=== PATIENT | female | born 1995 | race Caucasian/White ===

== ENCOUNTER 2018-01-11 15:57 | Day surgery (SDC) | payer BC, OTHER ==
[2018-01-11 16:48] VITALS: BMI 22.3
[2018-01-11] MEDS ORDERED: Ondansetron ODT 4 MG TAB PO SCH (17:39)
--- NOTE | 2018-01-11 17:44 | PDOC.FPROB ---
FMR OB H&P: HPI - History of Present Illness Chief Complaint: Abdominal cramping Indentification: at 21.2 wks History of Present Illness: 22 year old at 21.1 wks with ARON of 05/22/2018 presents with a one day history of abdominal cramping. Patient states it started yesterday. She ate a bowl of chili which did not sit right with her and she had several episodes ( appx 2) of non-bloody diarrhea. The abdominal pain persisted throughout the night. She describes it as her uterus feeling tight. Patient states the pain got worse today. The episodes are occurring intermittently every 30 minutes or so and last for 1-2 minutes at a time. She denies any associated vaginal bleeding, vaginal discharge, dysuria, or LoF. Patient states that at 26 wks during her last , she was "mildly" dilated and they were concerned she was in PTL. However, she carried infant to term. Patient denies fever or chills. Primary Care Physician: Smith FMR OB H&P: Current - Care : 2 Para: 1001 Gestational age: 21.2 wks Due date: 05/22/2018 - OB Labs Blood type: unknown RH: unknown Antibody Screen: unknown HIV: unknown RPR: unknown HepBsAg: unknown Quad screen: unknown Gonorrhea: unknown Chlamydia: unknown GBS: unknown FMR OB H&P: History - Past Medical History PMH: None - OB History OB History: x1 - Surgical History Sx History: Tonsillectomy Abdominal surgery to remove pennies - Social History Social History: Denies alcohol, tobacco, or drug use during - Family History Family History: Non-contributory FMR OB H&P: Medications - Current Home Medications: Medication Instructions Recorded Confirmed Type Doxylamine Succinate/Vit B6 1 each PO HS 01/11/18 01/11/18 History [Bonjesta ER 20-20 mg Tablet] Pnv No.95/Ferrous Fum/Folic AC 1 tab PO DAILY 01/11/18 01/11/18 History [ Vitamins Tablet] Promethazine [Phenergan] 25 mg PO Q6HR PRN 01/11/18 01/11/18 History Allergies/Adverse Reactions: Allergies Allergy/AdvReac Type Severity Reaction Status Date / Time adhesive tape Allergy Verified 01/11/18 16:39 latex Allergy Verified 01/11/18 16:39 FMR OB H&P: ROS - Review of Systems General: denies: fever/chills, weight/appetite/sleep changes, fatigue Eyes: denies: vision changes, scotomas ENT: denies: nasal congestion, rhinorrhea, sore throat Cardiovascular: denies: chest pain, palpitation, edema Respiratory: denies: cough, congestion, shortness of breath Gastrointestinal: reports: abdominal pain, cramping, nausea, vomiting (x1 after drinking a liter of water at once), diarrhea. denies: constipation Genitourinary (Female): denies: dysuria, hematuria, polyuria, vaginal discharge , vaginal pain, vaginal bleeding, contractions, vaginal pressure Musculoskeletal: denies: pain Neurologic: reports: headache. denies: syncope, seizures, loss of counsciousness Hematologic/Lymphatic: denies: prolonged or excessive bleeding Psychological: denies: depression, anxiety FMR OB H&P: Vital Signs - Maternal Vital signs: Temp: 98.7 F HR 85 BP 129/72 FMR OB H&P: Physical Exam - Physical Exam General: NAD, awake, alert and oriented HEENT: MMM, no scleral icterus, grossly normal vision, grossly normal hearing Neck: supple Heart: pulses present, no edema General: no respiratory distress, no retractions Abdomen: soft, gravid, non-tender Musculoskeletal: pulses present Neurological: no tremor, no focal deficit Skin: no rash, capillary refill <2 seconds Lymphatic: no unusual bruising or bleeding Psychiatric: intact recent and remote memory, good judgement and insight, normal mood and affect FMR OB H&P: A/P - Problem List (1) Abdominal cramping affecting Current Visit: Yes Status: Acute Code(s): O26.899 - OTH RELATED CONDITIONS, UNSPECIFIED TRIMESTER; R10.9 - UNSPECIFIED ABDOMINAL PAIN (2) Intrauterine Current Visit: Yes Status: Acute Code(s): Z34.90 - ENCNTR FOR SUPRVSN OF NORMAL , UNSP, UNSP TRIMESTER Assessment and Plan: 22 year old at 21.2 wk with ARON of 05/22/2018 1. Abdominal cramping affecting - dopplers show HR 130's - Abdomen soft - No vaginal bleeding - Recent history of diarrhea, nausea, vomiting - PO hydration - Zofran for nausea - Tylenol 1000 mg - Reassess after above measures are taken 2. sIUP - 21.2 weeks - See plan as above Disposition: Stable. Reassess after tylenol, zofran, and PO hydration. Discussion: Date/Time: 01/11/18 1740 This H&P was discussed with Dr. Mills who agrees with the above documentation and plan. Signature: Rere Lane, PGY-2
[2018-01-11] MEDS ORDERED: Acetaminophen 500 MG TAB PO SCH (17:45)
[2018-01-11 19:50] LABS: Bilirubin Negative (Negative); Blood, Urine Moderate (Negative); Clarity CLEAR (Clear); Glucose, Urine (Dipstick) Negative (Negative); Leukocyte Negative (Negative); Nitrite Negative (Negative); Protein, Urine (Dipstick) Negative (Neg-Trace); Specific Gravity, Urine 1.004 (1.002-1.036); Urobilinogen 0.2 mg/dL (0.2-1.0)
[2018-01-11 19:52] LABS: Bacteria/HPF None Seen HPF (None Seen); Hyaline Casts/LPF 0-3 HYALINE CAST LPF (0-3 Hyaline); RBC/HPF 0-3 HPF (0-3); Squamous Epithelial None Seen HPF (0-3); WBC/HPF None Seen HPF (0-3)
== END 2018-01-11 20:00 | disposition home or self-care (01) ==
LOC: L&D/OP 15:57
PROVIDERS: ATTEND Family Medicine
DX: O26.892 Other specified pregnancy related conditions, second trimester (principal); R10.9 Unspecified abdominal pain; Z3A.21 21 weeks gestation of pregnancy; Z91.040 Latex allergy status
CPT/HCPCS: 81001; 87480; 87510; 87660; 99284; Q0162

== ENCOUNTER 2018-03-20 20:31 | Day surgery (SDC) | payer OTHER ==
[2018-03-20 21:06] VITALS: BP 116/69; TEMP 98.3; BMI 24.1
--- NOTE | 2018-03-20 22:22 | PDOC.FPROB ---
FMR OB H&P: HPI - History of Present Illness Chief Complaint: Contractions History of Present Illness: This is a 22 yo at 31 weeks who presents with a cc of painful contractions since this morning. She states that the pain and contractions increased throughout the day. She states that the pain feels like the time she was previously in labor. She reports attempting to repositioning, drinking fluids, and walking around with no avail. She denies LOF, vaginal bleeding, vaginal discharge, SOB, chest pain, or nausea/vomiting. FMR OB H&P: Current - Care : 2 Para: 1001 Gestational age: 31.0 Due date: 05/22/18 - OB Labs Blood type: unknown RH: unknown Antibody Screen: unknown HIV: unknown RPR: unknown HepBsAg: unknown Quad screen: unknown Urine drug screen: not done Gonorrhea: unknown Chlamydia: unknown GBS: unknown FMR OB H&P: History - Past Medical History PMH: none - OB History OB History: SVDx1 - Surgical History Sx History: Tonsillectomy Abdominal surgery to remove pennies - Social History Social History: Denies LISBETH use during - Family History Family History: Noncontributory FMR OB H&P: Medications - Current Home Medications: Medication Instructions Recorded Confirmed Type Pnv No.95/Ferrous Fum/Folic AC 1 tab PO DAILY 01/11/18 03/20/18 History [ Vitamins Tablet] Allergies/Adverse Reactions: Allergies Allergy/AdvReac Type Severity Reaction Status Date / Time adhesive tape Allergy Verified 03/20/18 21:06 latex Allergy Verified 03/20/18 21:06 FMR OB H&P: ROS - Review of Systems General: denies: fever/chills, weight/appetite/sleep changes Eyes: denies: eye pain, vision changes ENT: denies: nasal congestion, rhinorrhea Cardiovascular: denies: chest pain, palpitation Respiratory: denies: cough, congestion Gastrointestinal: reports: abdominal pain (See HPI). denies: nausea, vomiting, bright red blood Genitourinary (Female): denies: incontinence, dysuria Musculoskeletal: reports: pain (back and hip pain). denies: redness, decrease range of motion Neurologic: denies: numbness, syncope Integumentary: denies: itching, rash Psychological: denies: depression, anxiety FMR OB H&P: Vital Signs - Maternal Vital signs: Vital Signs - First Documented Temp Pulse Resp BP Pulse Ox 98.3 F 105 H 20 116/69 98 03/20/18 20:57 03/20/18 20:57 03/20/18 20:57 03/20/18 20:57 03/20/18 20:57 - Heart Tones Baseline: 140 Variability: moderate Acceleration: present Deceleration: absent FMR OB H&P: Physical Exam - Physical Exam General: NAD, awake, alert and oriented HEENT: normocephalic and atraumatic, MMM Neck: trachea midline, no JVD Chest: non-tender to palpation Heart: RRR, normal S1/S2, no murmurs/rubs/gallops General: CTAB, no respiratory distress, good air movement Abdomen: soft, gravid, bowel sound present, other (mild tenderness to palpation) Musculoskeletal: normal gait and station, pulses present Neurological: cranial nerves II through XII intact Skin: no rash, good tugor Lymphatic: no unusual bruising or bleeding, no purpura Psychiatric: intact recent and remote memory, good judgement and insight - Pelvic Exam SVE: 0/50/-3 FMR OB H&P: A/P - Problem List (1) Third trimester Status: Acute Code(s): Z34.93 - ENCNTR FOR SUPRVSN OF NORMAL PREG, UNSP, THIRD TRIMESTER Disposition: This is a 22 yo at 31.0 wks Third trimester with pain in hips and feeling contractions -We will monitor FHTs and contractions -Pt denies LOF or increased discharge, no need for labs at this point -Pt's SVE is 0/50/-3 After monitoring pt, she had 2 contractions in a 2 hour period. FHTs are reassuring. She is feeling a little better at this point. US of baby shows adequate fluid, vertex, and high positioning. We are sending her home with return precautions. Discussion: Date/Time: 03/20/182213 This H&P was discussed with Dr. Lizarraga and Dr. Welch who agree with the above documentation and plan.
== END 2018-03-20 23:05 | disposition home or self-care (01) ==
LOC: L&D/OP 20:31
PROVIDERS: ATTEND Family Medicine
DX: O47.03 False labor before 37 completed weeks of gestation, third trimester (principal); O99.89 Other specified diseases and conditions complicating pregnancy, childbirth and the puerperium; M25.559 Pain in unspecified hip; Z3A.31 31 weeks gestation of pregnancy; Z79.899 Other long term (current) drug therapy; Z91.040 Latex allergy status; Z91.048 Other nonmedicinal substance allergy status
CPT/HCPCS: 99282

== ENCOUNTER 2018-04-25 18:09 | Day surgery (SDC) | payer OTHER ==
[2018-04-25 18:49] VITALS: BMI 24.6
[2018-04-25] MEDS ORDERED: Ondansetron ODT 4 MG TAB PO SCH (19:15)
[2018-04-25] MEDS ORDERED: Lactated Ringer's 500 ML IV SCH (19:15)
[2018-04-25] MEDS ORDERED: Acetaminophen 325 MG TAB PO SCH (19:15)
--- NOTE | 2018-04-25 19:42 | PDOC.FPROB ---
FMR OB H&P: HPI - History of Present Illness Chief Complaint: Feeling faint Indentification: 22 yo @ 36.1 weeks by 19.6 wk sono History of Present Illness: Patient is a 22 yo @ 36.1 weeks by 19.6 wk sono who presents with one day history of feeling faint since 2pm. Pt reports no triggers. Pt went to see her PCP this afternoon and was still feeling faint. Orthostatics, EKG, and accucheck performed at the office were negative, and PCP recommended L&D triage for further evaluation. Pt states that she has passed out a three times during this , each time she was lying on her back. She denies any relation of her symptoms with position today. Pt reports that her and daughter were sick with URI symptoms last week. states that he one of his coworkers tested positive for flu recently. Denies URI symptoms, myalgias, fever. Primary Care Physician: Ariana HERNANDEZ FMR OB H&P: Current - Care : 2 Para: 1 Gestational age: 36.1 weeks Due date: 05/22/2018 Dating Criteria: 19.6 wk sono Total weight gain: 13 lbs - OB Labs Blood type: A RH: negative Antibody Screen: negative RPR: negative Rubella: non-immune Gonorrhea: negative Chlamydia: negative Pap Smear: LSIL, no reflex HPV (10/2017) 1 hour gtt: Failed 3 hour GTT: Passed GBS: negative H&H: 11./31/3 (04/04/2018) Platelets: 164 (04/04/2018) - Anatomy Survey Anatomy survey: Left pyelectasis seen on 2T sono. FMR OB H&P: History - Past Medical History PMH: None - Surgical History Sx History: Tonsillectomy bilateral myringotomy - Social History Social History: Denies tobacco, alcohol, drug use. - Family History Family History: Maternal grandmother - breast cancer Mother - history of cervical cancer, BRCA + FMR OB H&P: Medications - Current Home Medications: Medication Instructions Recorded Confirmed Type Pnv No.95/Ferrous Fum/Folic AC 1 tab PO DAILY 01/11/18 04/25/18 History [ Vitamins Tablet] Ondansetron [Zofran ODT] 4 mg PO Q6HR PRN #20 tab 04/25/18 Rx valACYclovir HCl [valACYclovir] 500 mg PO BID 04/25/18 04/25/18 History Allergies/Adverse Reactions: Allergies Allergy/AdvReac Type Severity Reaction Status Date / Time adhesive tape Allergy Verified 03/20/18 21:06 latex Allergy Verified 03/20/18 21:06 FMR OB H&P: Vital Signs - Maternal Vital signs: BP: 114/71 P: 80 T: 98.4 SpO2: 98% on RA. - Heart Tones Baseline: 130 Variability: moderate Acceleration: present Deceleration: absent Category: category 1 FMR OB H&P: Physical Exam - Physical Exam General: NAD HEENT: normocephalic and atraumatic, EOMI, conjunctiva clear Heart: RRR, normal S1/S2 General: CTAB, no wheezing Abdomen: soft, gravid, non-tender Musculoskeletal: normal gait and station Neurological: cranial nerves II through XII intact, sensation to pain,touch and proprioception grossly normal Skin: no rash FMR OB H&P: A/P - Problem List (1) Pre-syncope Status: Acute Assessment and Plan: Orthostatics negative EKG negative. Unlikely vertiginous based on history. will hydrate with IV fluids. Zofran added for nausea. Will also order cbc to evaluate for possible anemia. Will re-evaluate. (2) Third trimester Status: Acute Code(s): Z34.93 - ENCNTR FOR SUPRVSN OF NORMAL PREG, UNSP, THIRD TRIMESTER Assessment and Plan: sIUP 22 yo @ 36.1 weeks by 19.6 wk sono. IOB labs wnl. 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 Pyelectasis on Anatomy US - pt has regular follow-up on M and this is reportedly stable, per pt. Discussion: Date/Time: 04/25/181939 This H&P was discussed with Dr. Kasper who agrees with the above documentation and plan. Signature: Evelyn Tinoco MD PGY-3 Addendum - Attending - Attending Attestation Date/Time: 04/26/18 4832 I personally evaluated the patient and discussed the management with Dr. Tinoco I agree with the History, Examination, Assessment and Plan documented above with any addition or exceptions noted below. Hydrate, check CBC and flu swab. FHTs reassuring. Maternal vitals stable.
[2018-04-25 20:06] LABS: Hemoglobin 11.7 g/dL (12.0-16.0); Mean Corpuscular Volume 97.1 fL (78.0-98.0); Mean Platelet Volume 8.6 fL (7.4-10.4); Platelet Count 210 thou/uL (130-400); RBC Distribution Width 11.9 % (11.5-14.5); Red Blood Cell (RBC) Count 3.45 mill/uL (4.20-5.40); White Blood Cell (WBC) Count 11.3 thou/uL (4.8-10.8)
--- NOTE | 2018-04-25 20:48 | PDOC.EVN ---
Event Note - Event Note Event Note: No anemia noted on CBC. Flu screen negative. Pt reports no improvement in faintness despite 500 cc bolus. Will administer an additional 500 cc LR prior to discharge. Will discharge pt at this time, as there is no clear cause for her symptoms and no other indication for hospitalization. Recommended that patient have help at home to assist with caring for her 16 month old. Recommended rest at home as well. Precautions given for if symptoms due not improve or worsen. Pt instructed to go to L&D/call PCP if this happens. Routine followup with PCP recommended.
== END 2018-04-25 21:00 | disposition home or self-care (01) ==
LOC: L&D/OP 18:09
PROVIDERS: ATTEND Family Medicine
DX: O99.89 Other specified diseases and conditions complicating pregnancy, childbirth and the puerperium (principal); R55 Syncope and collapse; Z3A.36 36 weeks gestation of pregnancy
CPT/HCPCS: 85027; 87804; 96360; 99283; Q0162

== ENCOUNTER 2018-05-14 13:53 | Inpatient (IN) | payer OTHER ==
[~2018-05-14 13:53] MED LIST: Lidocaine 2% MPF 10 ML AMP (For Epidural Use) ONE
[2018-05-14] MEDS ORDERED: Ondansetron PF 4 MG/2 ML Vial IVP PRN (14:39)
[2018-05-14] MEDS ORDERED: Promethazine HCl 25 MG/ML VIAL IM PRN (14:39)
[2018-05-14] MEDS ORDERED: Lidocaine 1% (PF) 30 ML VIAL SC PRN (14:39)
[2018-05-14] MEDS ORDERED: Ibuprofen 800 MG TAB PO PRN (14:39)
[2018-05-14] MEDS ORDERED: NS / Oxytocin 40 units/1000ml 1,000 ML IV PRN ×2 (14:39→14:57)
[2018-05-14] MEDS ORDERED: Acetaminophen 500 MG TAB PO PRN (14:39)
[2018-05-14] MEDS ORDERED: Butorphanol Tartrate 1 MG/ML VIAL SLOW IVP PRN (14:39)
[2018-05-14 14:46] LABS: Amnisure Test RUPTURE DETECTED (No Rupture)
[2018-05-14 14:47] LABS: Amnisure Internal Control QC ACCEPTABLE (ACCEPTABLE)
[2018-05-14 14:51] VITALS: BMI 23.8
[2018-05-14] MEDS ORDERED: Misoprostol 100 MCG TAB VAG SCH ×3 (15:00→18:00)
[2018-05-14] MEDS ORDERED: NS w/ Oxytocin 10 units 500 ML IV SCH ×3 (15:00→21:00)
[2018-05-14 16:11] LABS: Mean Corpuscular HGB CONC 36.5 g/dL (32.0-36.0); Mean Corpuscular Hemoglobin 35.7 pg (27.0-31.0); Mean Corpuscular Volume 97.8 fL (78.0-98.0); Mean Platelet Volume 8.2 fL (7.4-10.4); Platelet Count 208 thou/uL (130-400); RBC Distribution Width 12.3 % (11.5-14.5); Red Blood Cell (RBC) Count 3.09 mill/uL (4.20-5.40); White Blood Cell (WBC) Count 9.3 thou/uL (4.8-10.8)
--- NOTE | 2018-05-14 16:26 | PDOC.FPROB ---
FMR OB H&P: HPI - History of Present Illness Chief Complaint: SROM at 8:30 AM Indentification: 22 year old at 38.6 wks History of Present Illness: 22 year old at 38.6 wks by LMP/19.6 wk foster presents with SROM since 8: 30 AM. Patient reports that the fluid is clear. She has had intermittent contractions. They were regular and occurring every 10-15 minutes prior to arrival. Patient denies associated vaginal bleeding. She endorses good movement. Denies headache, scotoma, RUQ pain, swelling. Primary Care Physician: MARY Lane FMR OB H&P: Current - Care : 2 Para: 1001 Gestational age: 38.6 wks Due date: 05/22/2018 Dating Criteria: LMP/19.6 wk sono - OB Labs Blood type: A RH: negative Antibody Screen: negative HIV: negative RPR: negative HepBsAg: negative Rubella: non-immune Urine drug screen: negative Gonorrhea: negative Chlamydia: negative Pap Smear: LGSIL 1 hour gtt: Abnormal 3 hour GTT: Normal GBS: negative H&H: .04/27.3 Platelets: 164 - Additional Ultrasound Additional: pyelectasis on left, stable FMR OB H&P: History - Past Medical History PMH: Hx of HSV - OB History OB History: x1 Hx of HSV on PPX pyelectasis, left: stable Glucose intolerance Rh negative Rubella non-immune - [employer] History [employer] History: LGSIL on most recent Pap: will need colpo vs repeat Pap smear 6 wk PP Hx HSV - Surgical History Sx History: Denies - Social History Social History: Denies alcohol, tobacco, or drug use - Family History Family History: Paternal history of male pyelectasis with childhood renal failure FMR OB H&P: Medications - Current Home Medications: Medication Instructions Recorded Confirmed Type Pnv No.95/Ferrous Fum/Folic AC 1 tab PO DAILY 01/11/18 05/14/18 History [ Vitamins Tablet] valACYclovir HCl [valACYclovir] 500 mg PO BID 04/25/18 05/14/18 History Allergies/Adverse Reactions: Allergies Allergy/AdvReac Type Severity Reaction Status Date / Time venom-wasp Allergy Severe Anaphylaxis Verified 05/14/18 14:43 adhesive tape Allergy Verified 05/14/18 14:42 latex Allergy Verified 05/14/18 14:42 FMR OB H&P: ROS - Review of Systems General: denies: fever/chills, weight/appetite/sleep changes Eyes: denies: eye pain, vision changes ENT: denies: nasal congestion, rhinorrhea, sore throat Cardiovascular: denies: chest pain, palpitation, edema Respiratory: denies: cough, congestion, shortness of breath Gastrointestinal: denies: abdominal pain, nausea, vomiting, constipation Genitourinary (Female): reports: contractions, other (Leaking of fluid). denies : dysuria, vaginal discharge, vaginal bleeding, vaginal pressure Musculoskeletal: denies: pain, stiffness Neurologic: denies: numbness, syncope Integumentary: denies: itching, rash, lesions Hematologic/Lymphatic: denies: prolonged or excessive bleeding Psychological: denies: depression, anxiety FMR OB H&P: Vital Signs - Maternal Vital signs: BP: 108/71 Pulse: 87 Afebrile O2 sat 97% - Heart Tones Baseline: 125 Variability: moderate Acceleration: present Deceleration: absent Category: category 1 [place] contractions every: Irregular FMR OB H&P: Physical Exam - Physical Exam General: NAD, awake, alert and oriented HEENT: MMM, grossly normal vision, normal nasal mucosa FMR OB H&P: Results - Labs Lab results: Laboratory Results - last 24 hr 05/14/18 05/14/18 14:27 16:00 WBC 9.3 RBC 3.09 L Hgb 11.0 L Hct 30.2 L MCV 97.8 MCH 35.7 H MCHC 36.5 H RDW 12.3 Plt Count 208 MPV 8.2 Amnio Swab Test RUPTURE DETECTED H FMR OB H&P: A/P - Problem List (1) PROM (premature rupture of membranes) Current Visit: Yes Status: Acute Code(s): O42.90 - LUPIS ROM, 7TH0 BETW RUPT & ONST LABR, UNSP WEEKS OF GEST (2) History of PCR DNA positive for HSV1 Current Visit: Yes Status: Chronic Code(s): Z86.19 - PERSONAL HISTORY OF OTHER INFECTIOUS AND PARASITIC DISEASES (3) Rh negative status during Current Visit: Yes Status: Acute Code(s): O26.899 - OTH RELATED CONDITIONS, UNSPECIFIED TRIMESTER; Z67.91 - UNSPECIFIED BLOOD TYPE, RH NEGATIVE (4) pyelectasis Current Visit: Yes Status: Acute Code(s): [id number] - (5) Glucose intolerance Current Visit: Yes Status: Acute Code(s): E74.39 - OTHER DISORDERS OF INTESTINAL CARBOHYDRATE ABSORPTION (6) Rubella non-immune status, antepartum Current Visit: Yes Status: Acute Code(s): O99.89 - OTH DISEASES AND CONDITIONS COMPL PREG/CHLDBRTH; Z28.3 - UNDERIMMUNIZATION STATUS (7) LGSIL (low grade squamous intraepithelial dysplasia) Current Visit: Yes Status: Acute Code(s): [id number] - (8) Intrauterine Current Visit: No Status: Acute Code(s): Z34.90 - ENCNTR FOR SUPRVSN OF NORMAL , UNSP, UNSP TRIMESTER Disposition: 22 year old at 38.6 wks by LMP/19.6 wk sono presents with leaking of fluid 1. Prelabor rupture of membranes - Grossly ruptures, pooling of fluid in vaginal canal on speculum exam, amnisure positive - Patient has been rupture since 8:30 AM; she presented to hospital 7-8 hours post rupture - She is still not marianne regularly; will initiate IOL with vaginal cytotec as patient is high risk for infection with prolonged rupture of membranes - 2/50/-2, posterior, soft; witt score of 6 - cytotec as above - Patient desires as low intervention as possible, but she understands the need to proceed with augmentation at this time given timeframe of rupture 2. Hx of HSV - Concern for outbreak in third trimester; no lesions on exam, but prodromal symptoms present. Patient treated and continued on ppx during remainder of - Speculum exam done on admission to L&D. No evidence of lesions externally or internally. Only pooling of fluid noted on speculum exam 3. Rh negative - s/p rhogam at 28 wks 4. Glucose intolerance - Abnormal 1h GTT with normal 3h GTT 5. pyelecatasis, left - Has been following with MFM, stable - Was told to notify marketing traffic coordinator 6. Rubella non-immune - Will need MMR vaccine PP 7. Low-normal platelets - CBC pending at this time 8. TIUP - Plan as above for #1 - Patient does not desire epidural, but she did watch the video in case she decides to change her mind Dispo: Admit to L&D. Plan to augment labor d/t PROM with minimal to no contractions currently. Category I strip. Discussion: Date/Time: 05/14/18 8980 This H&P was discussed with Dr. Kasper who agrees with the above documentation and plan. Signature: Rere Lane, DO PGY-2 Addendum - Attending - Attending Attestation Date/Time: 05/15/18 9776 I personally evaluated the patient and discussed the management with Dr. Lane I agree with the History, Examination, Assessment and Plan documented above with any addition or exceptions noted below. 22 year old at 38.6 wks by LMP/19.6 wk sono presenting for term PROM HSV + on acylocovir prophylaxis. Negative sterile speculum exam pyelectasis, followed by MFM GBs negative. Ruptured x 8hrs on presentation. Pt resistant to starting pitocin so will start cytotec PV for induction of labor. Anticipate
[2018-05-14] MEDS: Lactated Ringer's 1,000 ML IV SCH (16:31)
[2018-05-14] MEDS ORDERED: Calcium Carbonate 500 MG ChewTAB PO PRN (16:42)
[2018-05-14 16:47] LABS: HBSAg Index 0.25 S/CO (0-0.99); Hep B Surf Ag Non-Reactive S/CO (NonReactive); Syphilis Antibody Nonreactive (Nonreactive); Syphilis Antibody Index 0.02 S/CO (<1.00 Non-Reactive)
[2018-05-14] MEDS ORDERED: valACYclovir 500 MG TAB PO SCH (21:00)
--- NOTE | 2018-05-14 22:09 | PDOC.LDPN ---
Labor & Delivery Progress Note - Subjective Subjective: comfortable - Objective Vital signs reviewed and normal: yes General: NAD Uterine fundus: non tender SVE: 20:40 Dilation: 2 Effacement: 50% Station: -2 FHT: category 1, variability present [place] contractions every: infrequent - Assessment (1) PROM (premature rupture of membranes) Code(s): O42.90 - LUPIS ROM, 7TH0 BETW RUPT & ONST LABR, UNSP WEEKS OF GEST Current Visit: Yes Status: Acute (2) History of PCR DNA positive for HSV1 Code(s): Z86.19 - PERSONAL HISTORY OF OTHER INFECTIOUS AND PARASITIC DISEASES Current Visit: Yes Status: Chronic (3) Rh negative status during Code(s): O26.899 - OTH RELATED CONDITIONS, UNSPECIFIED TRIMESTER; Z67.91 - UNSPECIFIED BLOOD TYPE, RH NEGATIVE Current Visit: Yes Status: Acute (4) pyelectasis Code(s): [id number] - Current Visit: Yes Status: Acute (5) Glucose intolerance Code(s): E74.39 - OTHER DISORDERS OF INTESTINAL CARBOHYDRATE ABSORPTION Current Visit: Yes Status: Acute (6) Rubella non-immune status, antepartum Code(s): O99.89 - OTH DISEASES AND CONDITIONS COMPL PREG/CHLDBRTH; Z28.3 - UNDERIMMUNIZATION STATUS Current Visit: Yes Status: Acute (7) LGSIL (low grade squamous intraepithelial dysplasia) Code(s): [id number] - Current Visit: Yes Status: Acute (8) Intrauterine Code(s): Z34.90 - ENCNTR FOR SUPRVSN OF NORMAL , UNSP, UNSP TRIMESTER Current Visit: No Status: Acute Plan: continue plan of care, labor augmentation -: Patient unchanged from previous check. Contractions infrequent. Will attempt second dose of vaginal cytotec. Plan to start pitocin at next check in approximately 4 hours per protocol. Category I strip. Rere Lane, DO PGY-2
--- NOTE | 2018-05-15 01:57 | PDOC.LDPN ---
Labor & Delivery Progress Note - Subjective Subjective: comfortable - Objective Vital signs reviewed and normal: yes General: NAD, breathing through contractions Dilation: 2.5 Effacement: 50% Station: -2 FHT: category 1 (baseline 150, variability present, no decels ) [place] contractions every: 3-5 - Assessment (1) pyelectasis Code(s): [id number] - Current Visit: Yes Status: Acute (2) Glucose intolerance Code(s): E74.39 - OTHER DISORDERS OF INTESTINAL CARBOHYDRATE ABSORPTION Current Visit: Yes Status: Acute (3) PROM (premature rupture of membranes) Code(s): O42.90 - LUPIS ROM, 7TH0 BETW RUPT & ONST LABR, UNSP WEEKS OF GEST Current Visit: Yes Status: Acute (4) Intrauterine Code(s): Z34.90 - ENCNTR FOR SUPRVSN OF NORMAL , UNSP, UNSP TRIMESTER Current Visit: No Status: Acute (5) Third trimester Code(s): Z34.93 - ENCNTR FOR SUPRVSN OF NORMAL PREG, UNSP, THIRD TRIMESTER Current Visit: No Status: Acute Plan: pitocin for augmentation -: unchanged cervical exam, continue pitocin for augmentation, recheck in 2 hrs
[2018-05-15] MEDS ORDERED: Fentanyl 4 mcg/Bup 0.1% Cadd 100 ML ONE (04:15)
[2018-05-15] MEDS ORDERED: Ondansetron PF 4 MG/2 ML Vial IVP PRN ×2 (05:02→07:45)
[2018-05-15] MEDS ORDERED: Eucerin (Mineral Oil/Petrolatum,White) 30 gm Jar TOP PRN (05:02)
[2018-05-15] MEDS ORDERED: Lactated Ringer's 500 ML IV PRN (05:02)
[2018-05-15] MEDS ORDERED: Naloxone HCl 0.4 mg/ml Vial IVP PRN ×2 (05:02)
[2018-05-15] MEDS ORDERED: Promethazine HCl 25 MG/ML VIAL IM PRN (05:02)
[2018-05-15] MEDS ORDERED: diphenhydrAMINE 50 MG/ML VIAL IVP PRN (05:02)
[2018-05-15] MEDS ORDERED: ePHEDrine/0.9% NaCl/PF SYRINGE 50 mg/10 ml SLOW IVP PRN (05:02)
[2018-05-15] MEDS ORDERED: Communication Order-Pharmacy FS SCH (05:15)
[2018-05-15] MEDS ORDERED: Fentanyl 4 mcg/Bupivacaine 0.1% Cassette 100 ML EPIDURAL SCH (05:15)
--- NOTE | 2018-05-15 06:11 | PDOC.LDPN ---
Labor & Delivery Progress Note - Subjective Subjective: comfortable - Objective Vital signs reviewed and normal: yes General: NAD, breathing through contractions Uterine fundus: non tender Dilation: 7 Effacement: 100% Station: -1 FHT: category 1 (baseline 140, minimal variability, accels present ) [place] contractions every: 2-4 mins - Assessment (1) pyelectasis Code(s): [id number] - Current Visit: Yes Status: Acute (2) Glucose intolerance Code(s): E74.39 - OTHER DISORDERS OF INTESTINAL CARBOHYDRATE ABSORPTION Current Visit: Yes Status: Acute (3) PROM (premature rupture of membranes) Code(s): O42.90 - LUPIS ROM, 7TH0 BETW RUPT & ONST LABR, UNSP WEEKS OF GEST Current Visit: Yes Status: Acute (4) Intrauterine Code(s): Z34.90 - ENCNTR FOR SUPRVSN OF NORMAL , UNSP, UNSP TRIMESTER Current Visit: No Status: Acute (5) Third trimester Code(s): Z34.93 - ENCNTR FOR SUPRVSN OF NORMAL PREG, UNSP, THIRD TRIMESTER Current Visit: No Status: Acute Plan: continue plan of care, pitocin for augmentation -: epidural placed, symptomatic. elevate position, turn off pump making cervical change, monitor and recheck in 2 hours, continue pitocin for augmentation
[2018-05-15] MEDS: Lactated Ringer's 1,000 ML IV SCH ×2 (06:34→22:30)
[2018-05-15] MEDS ORDERED: Bisacodyl 10 MG SUPP PR PRN (07:45)
[2018-05-15] MEDS ORDERED: Milk Of Magnesia 30 ML UDCUP PO PRN (07:45)
[2018-05-15] MEDS ORDERED: Adacel (T-DAP) 0.5 ML SYRINGE IM ONE (07:45)
[2018-05-15] MEDS ORDERED: Preparation H Ointment 28 GM TUBE PR PRN (07:45)
[2018-05-15] MEDS ORDERED: Lanolin Ointment 7 GM TUBE TOP PRN (07:45)
[2018-05-15] MEDS: NS / Oxytocin 40 units/1000ml 1,000 ML IV SCH ×2 (08:27→14:19)
[2018-05-15] MEDS ORDERED: Prenatal Vitamin 1 TAB PO SCH (09:00)
[2018-05-15] MEDS: Ferrous Sulfate 325 MG TAB PO SCH ×2 (10:16→16:45)
[2018-05-15] MEDS: Prenatal Vitamin 1 TAB PO SCH (10:26)
[2018-05-15] MEDS: Docusate Calcium (SURFAK) 240 MG CAP PO SCH ×2 (10:26→20:00)
[2018-05-15] MEDS: Ibuprofen 800 MG TAB PO SCH ×3 (10:26→22:28)
[2018-05-15] MEDS: Acetaminophen 325 MG TAB PO PRN (14:19)
[2018-05-15] MEDS: Calcium Carbonate 500 MG ChewTAB PO PRN ×2 (15:47→20:01)
[2018-05-15] MEDS ORDERED: Acetaminophen/Codeine 30-300mg Tablet PO PRN (17:19)
[2018-05-16] MEDS: Acetaminophen 325 MG TAB PO PRN ×2 (01:37→10:02)
[2018-05-16] MEDS: Ibuprofen 800 MG TAB PO SCH ×2 (05:22→13:36)
--- NOTE | 2018-05-16 07:09 | PDOC.PP ---
Post Progress Note Post Day #: 1 Subjective: Patient doing well this AM. No significant overnight events. Patient did state she was having some vaginal pain yesterday afternoon. This has since improved. She states lochia is like that of a period and very similar to her last delivery. She is tolerating PO and ambulating. PO intake tolerated: yes Flatus: yes Ambulation: yes Vital Signs (12 hours) Temp Pulse Resp BP BP Pulse Ox 05/16/18 05:00 97.9 F 78 16 111/69 05/16/18 01:35 97.6 F 77 16 120/83 05/15/18 20:20 98.2 F 54 L 16 104/50 L 97 Weight Weight 64.864 kg - Physical Examination General: NAD Cardiovascular: no m/r/g, RRR Respiratory: clear to auscultation bilaterally, non-labored breathing Abdominal: + bowel sounds, lochia (like that of a period), no distention, appropriately TTP Fundus firm & at: below umbilicus Neurological: no gross focal deficits Psychiatric: A&Ox3, normal affect Result Diagrams: 05/14/18 16:00 Additional Labs: Post Labs Blood Type A NEGATIVE 05/14/18 16:00 Hep Bs Antigen Non-Reactive S/CO (NonReactive) 05/14/18 16:00 (1) (spontaneous vaginal delivery) Code(s): O80 - ENCOUNTER FOR FULL-TERM UNCOMPLICATED DELIVERY Status: Acute (2) Term delivered Code(s): O80 - ENCOUNTER FOR FULL-TERM UNCOMPLICATED DELIVERY Status: Acute (3) PROM (premature rupture of membranes) Code(s): O42.90 - LUPIS ROM, 7TH0 BETW RUPT & ONST LABR, UNSP WEEKS OF GEST Status: Acute (4) History of PCR DNA positive for HSV1 Code(s): Z86.19 - PERSONAL HISTORY OF OTHER INFECTIOUS AND PARASITIC DISEASES Status: Chronic (5) Rh negative status during Code(s): O26.899 - OTH RELATED CONDITIONS, UNSPECIFIED TRIMESTER; Z67.91 - UNSPECIFIED BLOOD TYPE, RH NEGATIVE Status: Acute (6) pyelectasis Code(s): ZEA8236 - Status: Acute (7) Glucose intolerance Code(s): E74.39 - OTHER DISORDERS OF INTESTINAL CARBOHYDRATE ABSORPTION Status : Acute (8) Rubella non-immune status, antepartum Code(s): O99.89 - OTH DISEASES AND CONDITIONS COMPL PREG/CHLDBRTH; Z28.3 - UNDERIMMUNIZATION STATUS Status: Acute (9) LGSIL (low grade squamous intraepithelial dysplasia) Code(s): WII4929 - Status: Acute (10) Intrauterine Code(s): Z34.90 - ENCNTR FOR SUPRVSN OF NORMAL , UNSP, UNSP TRIMESTER Status: Acute - Assessment/Plan 22 year old --> P2002 delivered TAGA M infant at 7:17 on 05/15 via . Apgars 9/9 TIUP, delivered - No complications - - Pain well controlled - Routine PP care - Contraception: Mini pill (progestin only) - Breast feeding - Plan as above - No lacerations Hx of HSV - Concern for outbreak in third trimester; no lesions on exam, but prodromal symptoms present. Patient treated and continued on ppx during remainder of - Speculum exam done on admission to L&D. No evidence of lesions externally or internally. Only pooling of fluid noted on speculum exam - Continue ppx PP 3. Rh negative - s/p rhogam at 28 wks - Will need rhogam PP 4. Glucose intolerance - Abnormal 1h GTT with normal 3h GTT 5. 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 Rubella non-immune - Will need MMR vaccine PP Dispo: Stable. Patient desires to go home today. Will draw infant's bili early and plan for d/c home today pending bili level. Rere Lane, DO PGY-2 Addendum - Attending - Attending Attestation Date/Time: 05/16/18 0234 I personally evaluated the patient and discussed the management with Dr. Lane I agree with the History, Examination, Assessment and Plan documented above with any addition or exceptions noted below. Pt requesting early d/c today. Meeting appropriate milestones. Can d/c to home if baby is ready to go.
[2018-05-16] MEDS: Ferrous Sulfate 325 MG TAB PO SCH (09:07)
[2018-05-16] MEDS: Docusate Calcium (SURFAK) 240 MG CAP PO SCH (09:55)
[2018-05-16] MEDS: Prenatal Vitamin 1 TAB PO SCH (09:55)
[2018-05-16 11:45] VITALS: BP 101/66; TEMP 97.8
[2018-05-16] MEDS ORDERED: Measles/Mumps/Rubella 10 MCG/0.5 ML VIAL SC ONE (13:45)
--- NOTE | 2018-05-18 21:15 | OP ---
DATE OF PROCEDURE: 05/15/2018 DELIVERING PHYSICIAN: Rere Lane DO ADDITIONAL ATTENDING PHYSICIAN: Dr. Sabrina Singh. PROCEDURE PERFORMED: Spontaneous vaginal delivery. ANESTHESIA: Epidural. ESTIMATED BLOOD LOSS: 152 mL. PREOPERATIVE DIAGNOSES: 1. Term intrauterine 2. Prelabor rupture of membranes. 3. 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 4. Glucose intolerance. POSTOPERATIVE DIAGNOSES: 1. Term intrauterine , delivered. 2. Prelabor rupture of membranes. 3. 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 4. Glucose intolerance. INDICATIONS: This is a 22-year-old female, G2, P1-0-0-1, who presented with prelabor rupture of membranes on 05/14/2018. Labor augmentation was started at the time of presentation as the patient had been ruptured for approximately 9 hours. DELIVERY NOTE: This is a 22-year-old female, G2, P-1-0-0-1, who delivered a viable male infant at 39 weeks via spontaneous vaginal delivery at 0717 on 05/15/2018. Following an uneventful antepartum course, a vigorous male was delivered over an intact perineum in the occipital anterior position. Anterior shoulders and remainder of the body delivered. Nuchal cord x1 reduced. The head was held down, and mouth and nares were bulb suctioned. Cord was clamped and cut. Cord blood was collected. Placenta was delivered intact with three-vessel cord noted. Fundal massage was performed. The fundus was firm. The cervix and vagina were inspected and found to be free of lacerations. Infant went to Nursery in good condition for routine recovery and routine care. Apgars were 9 and 9 at one and five minutes respectively. The patient tolerated delivery well, went to after routine recovery/care. Job ID: [id number] [facility]
== END 2018-05-16 14:00 | disposition home or self-care (01) | DRG 807 ==
LOC: L&D/OP 13:53 → L&D 16:32 → 3SW 05-15 09:58
PROVIDERS: ADMIT Family Medicine; ATTEND Family Medicine
PROC: 3E0234Z Introduction of Serum, Toxoid and Vaccine into Muscle, Percutaneous Approach (ICD-10-PCS; principal; 2018-05-15)
PROC: 10E0XZZ Delivery of Products of Conception, External Approach (ICD-10-PCS; 2018-05-15)
PROC: 3E0P7VZ Introduction of Hormone into Female Reproductive, Via Natural or Artificial Opening (ICD-10-PCS; 2018-05-15)
PROC: 3E033VJ Introduction of Other Hormone into Peripheral Vein, Percutaneous Approach (ICD-10-PCS; 2018-05-15)
DX: O42.02 Full-term premature rupture of membranes, onset of labor within 24 hours of rupture (principal); Z37.0 Single live birth; Z3A.38 38 weeks gestation of pregnancy; O26.893 Other specified pregnancy related conditions, third trimester; O35.8XX0 Maternal care for other (suspected) fetal abnormality and damage, not applicable or unspecified; E74.39 Other disorders of intestinal carbohydrate absorption; O99.284 Endocrine, nutritional and metabolic diseases complicating childbirth; Z86.19 Personal history of other infectious and parasitic diseases; O69.81X0 Labor and delivery complicated by cord around neck, without compression, not applicable or unspecified; Z23 Encounter for immunization
CPT/HCPCS: 36415; 51702; 84112; 85027; 86780; 86850; 86870; 86900; 86901; 87340; 99285; J2001; J2405

== ENCOUNTER 2018-05-26 14:48 | Emergency (ER) | payer OTHER ==
[2018-05-26 15:34] LABS: #Basophils 0.1 thou/uL (0.0-0.2); #Eosinphils 0.1 thou/uL (0.0-0.7); #Lymphocytes 3.2 thou/uL (1.20-3.40); #Monocytes 0.3 thou/uL (0.11-0.59); #Neutrophils 8.4 thou/uL (1.40-6.50); %Basophils 1.1 % (0.0-1.0); %Eosinophils 0.5 % (0.0-10.0); %Lymphocytes 26.7 % (21.0-51.0); %Monocytes 2.3 % (0.0-10.0); %Neutrophils 69.5 % (42.0-75.0); Mean Corpuscular HGB CONC 33.3 g/dL (32.0-36.0); Mean Corpuscular Hemoglobin 33.1 pg (27.0-31.0); Mean Corpuscular Volume 99.4 fL (78.0-98.0); Mean Platelet Volume 7.7 fL (7.4-10.4); Platelet Count 419 thou/uL (130-400); RBC Distribution Width 11.9 % (11.5-14.5); Red Blood Cell (RBC) Count 4.54 mill/uL (4.20-5.40); White Blood Cell (WBC) Count 12.1 thou/uL (4.8-10.8)
[2018-05-26 15:55] LABS: ALT (SGPT) 16 U/L (8-55); AST (SGOT) 12 U/L (5-34); Albumin 4.3 g/dL (3.5-5.0); Alkaline Phosphatase 87 U/L (40-150); Anion Gap 13 mmol/L (10-20); BUN (Urea Nitrogen) 17 mg/dL (7.0-18.7); Bilirubin, Total 0.3 mg/dL (0.2-1.2); Calc. Creatinine Clearance 0 mL/min (70-130); Calcium 9.4 mg/dL (7.8-10.44); Carbon Dioxide 26 mmol/L (22-29); Chloride 107 mmol/L (98-107); Estimated GFR-MDRD Greater than 90; Globulin 3.2 g/dL (2.4-3.5); Glucose 89 mg/dL (70-105); Potassium 4.3 mmol/L (3.5-5.1); Protein, Total 7.5 g/dL (6.0-8.3); Sodium 142 mmol/L (136-145)
--- NOTE | 2018-05-26 16:58 | ULT ---
TRANSABDOMINAL PELVIC ULTRASOUND: HISTORY: Recent child delivery with persistent bleeding since 05/15/2018. TECHNIQUE: Jules-scale and color Doppler with spectral Doppler images were obtained of the abdomen via a transabd ominal approach. FINDINGS: The uterus measures 9.6 x 5.3 x 8.1 cm. The endometrial stripe measures 6.4 mm; however, there is so me fluid distention of the endometrial canal. No vascularized material is seen within the endometria l canal, to suggest retained products of conception. The right ovary measures 2.0 x 1.4 x 2.7 cm. The left ovary measures 4.0 x 2.4 x 2.5 cm. There is n ormal flow to both ovaries. No free fluid is evident. IMPRESSION: 1. Mild amount of endometrial fluid seen within the canal. No definite evidence of retained product s of conception. 2. Normal flow to both ovaries. POS: [facility]
== END 2018-05-26 17:52 | disposition home or self-care (01) ==
LOC: ERS 14:48
DX: O72.2 Delayed and secondary postpartum hemorrhage (principal); Z79.899 Other long term (current) drug therapy
CPT/HCPCS: 36415; 76856; 80053; 85025; 86850; 86870; 86900; 86901